=== PATIENT | female | born 1970 | race Caucasian/White ===

== ENCOUNTER 2021-07-27 08:11 | Inpatient (IN) ==
[2021-07-27] MEDS ORDERED: SODIUM CHLORIDE 0.9% 1,000 ML IV STA (08:30)
[2021-07-27 08:54] LABS: Basophils # 0.1 10*3/uL (0.0-0.2); Basophils % 0.3 % (0.0-0.8); Eosinophils # 0.1 10*3/uL (0.0-0.87); Eosinophils % 0.6 % (0.00-10.9); Hematocrit 47.5 VOL% (35.7-47.0); Hemoglobin 14.6 GM/DL (12.0-16.0); Immature Granulocytes % 1.2 %; Immature Granulocytes Absolute 0.23 #; Lymphocytes # 2.5 10*3/uL (1.4-4.0); Lymphocytes % 13.3 % (21.3-54.2); Mean Corpuscular HGB Conc 30.7 GM/DL (32-36); Mean Corpuscular Volume 76.1 FL (87-102); Mean Platelet Volume 9.8 FL (9.6-12.0); Monocytes % 6.8 % (1.7-12.7); Neutrophils % 77.8 % (38.7-73.9); Platelet Count 545 T/CUMM (130-400); Red Blood Count 6.24 MC/CUMM (3.8-5.5); Red Cell Distribution Width 16.2 % (9.3-17.3); White Blood Count 18.6 T/CUMM (4-12)
[2021-07-27] MEDS ORDERED: HYDROmorphone 2 MG/1 ML VIAL IV STA (09:06)
[2021-07-27] MEDS ORDERED: ONDANSETRON 4 MG/2 ML VIAL IV ONE (09:06)
[2021-07-27] MEDS ORDERED: methylPREDNISolone SOD SUC 40 MG/1 ML VIAL IV STA (09:15)
[2021-07-27 09:17] LABS: Alanine Aminotransferase 38 U/L (13-56); Albumin 3.3 G/DL (3.4-5.0); Alkaline Phosphatase 132 U/L (45-117); Aspartate Amino Transferase 24 U/L (0-37); Blood Urea Nitrogen 17 MG/DL (7-18); Calcium 9.5 MG/DL (8.5-10.1); Carbon Dioxide 20 MMOL/L (21-32); Estimated Glom Filtration Rate 63 ML/MIN; Glucose 178 MG/DL (74-106); Osmolality,Calculated 278.8 MOS/KG (273-304); Potassium 3.7 MMOL/L (3.5-5.1); Sodium 137 MMOL/L (136-145); Total Protein 7.7 G/DL (6.4-8.2)
[2021-07-27] MEDS ORDERED: LACTATED RINGERS 1,000 ML IV ONE (09:26)
[2021-07-27] MEDS ORDERED: GLUCAGON 1 MG VIAL IM PRN (11:20)
[2021-07-27] MEDS ORDERED: DEXTROSE 10% 250 ML BAG IV PRN (11:20)
[2021-07-27] MEDS: SODIUM CHLORIDE 0.9% 1,000 ML IV SCH ×2 (12:07→21:10)
[2021-07-27] MEDS: PIPERACILLIN/TAZOBACTAM 3,375 MG in SODIUM CHLORIDE 0.9% 100 ML IV SCH ×2 (12:07→21:10)
[2021-07-27] MEDS: MORPHINE 2 MG/1 ML SYRINGE IV PRN ×2 (12:26→17:46)
[2021-07-27 14:48] LABS: Bilirubin,Urine Negative (Negative); Blood, Urine Negative (Negative); Glucose,Urine (UA) Negative (Negative); Ketones,Urine Negative (Negative); Mucus,Urine Occasional /LPF (Occasional); Nitrite,Urine Negative (Negative); Protein,Urine Negative; RBC,Urine 1 /HPF (0-4); Squamous Epithelial Cell,Urine Occasional /HPF (0-10); Urine Appearance CLEAR (Clear); Urine Color Yellow (Yellow); Urine Specific Gravity 1.047 (1.001-1.035); Urine Urobilinogen < 2.0 EU/DL (<2.0)
[2021-07-27] MEDS ORDERED: INFLUENZA VIRUS VACCINE 0.5 ML SYRINGE IM ONE (15:32)
[2021-07-27] MEDS: ENOXAPARIN 40 MG/0.4 ML SYRINGE SUBCUT SCH (21:12)
[2021-07-28] MEDS ORDERED: MORPHINE 4 MG/1 ML VIAL IV PRN (02:41)
[2021-07-28] MEDS: ONDANSETRON 4 MG/2 ML VIAL IV PRN ×2 (02:42→12:29)
[2021-07-28] MEDS: MORPHINE 2 MG/1 ML SYRINGE IV PRN (02:44)
[2021-07-28] MEDS: PIPERACILLIN/TAZOBACTAM 3,375 MG in SODIUM CHLORIDE 0.9% 100 ML IV SCH ×3 (04:38→20:42)
[2021-07-28 06:59] LABS: Albumin 2.7 G/DL (3.4-5.0); Bilirubin,Total 0.9 MG/DL (0.20-1.00); Calcium 8.8 MG/DL (8.5-10.1); Osmolality,Calculated 283.1 MOS/KG (273-304); Potassium 3.8 MMOL/L (3.5-5.1); Thyroid Stimulating Hormone 0.036 uIU/ml (0.358-3.74); Total Protein 6.8 G/DL (6.4-8.2)
[2021-07-28] MEDS ORDERED: LEVOTHYROXINE 100 MCG VIAL IV SCH (07:00)
[2021-07-28] MEDS: PANTOPRAZOLE 40 MG VIAL IV SCH (09:20)
[2021-07-28 10:20] LABS: Basophils % 0.1 % (0.2-1.0); Eosinophils # 0.1 # (0.0-0.70); Eosinophils % 0.7 % (0.0-10.0); Hematocrit 38.4 VOL% (37.0-47.0); Hemoglobin 11.6 GM/DL (12.0-16.0); Lymphocytes # 2.7 # (1.3-2.9); Lymphocytes % 16.8 % (20.5-45.5); Mean Corpuscular HGB Conc 30.2 GM/DL (32-36); Mean Corpuscular Volume 77.9 FL (81-99); Mean Platelet Volume 10.4 FL (7.4-10.4); Monocytes % 8.5 % (5.5-11.7); Neutrophils % 73.7 % (43.0-65.0); Platelet Count 383 T/CUMM (130-400); Red Blood Count 4.93 MC/CUMM (4.20-5.40); Red Cell Distribution Width 15.4 % (11.5-15.5); White Blood Count 16.1 T/CUMM (4.8-10.8)
[2021-07-28] MEDS: methylPREDNISolone SOD SUC 40 MG/1 ML VIAL IV SCH (11:11)
[2021-07-28] MEDS: SODIUM CHLORIDE 0.9% 1,000 ML IV SCH ×2 (12:13→21:32)
[2021-07-28] MEDS: ENOXAPARIN 40 MG/0.4 ML SYRINGE SUBCUT SCH (20:39)
[2021-07-29] MEDS ORDERED: ACETAMINOPHEN 325 MG TABLET PO PRN (00:53)
[2021-07-29] MEDS: SODIUM CHLORIDE 0.9% 1,000 ML IV SCH (04:20)
[2021-07-29] MEDS: PIPERACILLIN/TAZOBACTAM 3,375 MG in SODIUM CHLORIDE 0.9% 100 ML IV SCH ×3 (04:20→20:58)
[2021-07-29] MEDS: LEVOTHYROXINE 100 MCG VIAL IV SCH (06:19)
[2021-07-29 06:49] LABS: Calcium 8.3 MG/DL (8.5-10.1); Osmolality,Calculated 281.3 MOS/KG (273-304); Potassium 3.9 MMOL/L (3.5-5.1)
[2021-07-29 07:13] LABS: Basophils % 0.1 % (0.0-0.8); Eosinophils % 0.1 % (0.00-10.9); Hemoglobin 9.6 GM/DL (12.0-16.0); Immature Granulocytes % 0.6 %; Immature Granulocytes Absolute 0.09 #; Lymphocytes # 2.3 10*3/uL (1.4-4.0); Lymphocytes % 16.4 % (21.3-54.2); Mean Corpuscular Volume 80.3 FL (87-102); Mean Platelet Volume 10.7 FL (9.6-12.0); Monocytes % 5.4 % (1.7-12.7); Neutrophils % 77.4 % (38.7-73.9); Platelet Count 312 T/CUMM (130-400); Red Blood Count 4.12 MC/CUMM (3.8-5.5); Red Cell Distribution Width 15.1 % (9.3-17.3); White Blood Count 13.9 T/CUMM (4-12)
[2021-07-29 07:18] LABS: Hematocrit 33.1 VOL% (35.7-47.0)
[2021-07-29 09:01] LABS: Folate 15.6 NG/ML (5.38-24.0)
[2021-07-29 09:02] LABS: % Iron Saturation 8.7 % (18-50); Ferritin 39.8 ng/mL (8-252)
[2021-07-29] MEDS: PANTOPRAZOLE 40 MG VIAL IV SCH (09:05)
[2021-07-29] MEDS: methylPREDNISolone SOD SUC 40 MG/1 ML VIAL IV SCH (09:06)
[2021-07-29] MEDS: FERROUS GLUCONATE 324 MG TABLET PO SCH (20:58)
[2021-07-29] MEDS: ENOXAPARIN 40 MG/0.4 ML SYRINGE SUBCUT SCH (20:59)
[2021-07-30] MEDS: PIPERACILLIN/TAZOBACTAM 3,375 MG in SODIUM CHLORIDE 0.9% 100 ML IV SCH ×2 (04:10→13:37)
[2021-07-30 05:56] LABS: Basophils # 0.1 10*3/uL (0.0-0.2); Basophils % 0.4 % (0.0-0.8); Eosinophils # 0.1 10*3/uL (0.0-0.87); Eosinophils % 0.6 % (0.00-10.9); Hematocrit 31.9 VOL% (35.7-47.0); Hemoglobin 9.3 GM/DL (12.0-16.0); Immature Granulocytes % 0.6 %; Immature Granulocytes Absolute 0.07 #; Lymphocytes # 3.7 10*3/uL (1.4-4.0); Lymphocytes % 29.6 % (21.3-54.2); Mean Corpuscular HGB Conc 29.2 GM/DL (32-36); Mean Corpuscular Volume 79.2 FL (87-102); Mean Platelet Volume 10.1 FL (9.6-12.0); Monocytes % 6.8 % (1.7-12.7); Platelet Count 293 T/CUMM (130-400); Red Blood Count 4.03 MC/CUMM (3.8-5.5); Red Cell Distribution Width 14.9 % (9.3-17.3); White Blood Count 12.4 T/CUMM (4-12)
[2021-07-30 06:07] LABS: Alanine Aminotransferase 30 U/L (13-56); Albumin 2.5 G/DL (3.4-5.0); Alkaline Phosphatase 75 U/L (45-117); Aspartate Amino Transferase 17 U/L (0-37); Bilirubin,Total < 0.39 MG/DL (0.20-1.00); Blood Urea Nitrogen 14 MG/DL (7-18); Calcium 8.8 MG/DL (8.5-10.1); Carbon Dioxide 25 MMOL/L (21-32); Estimated Glom Filtration Rate 108 ML/MIN; Glucose 93 MG/DL (74-106); Osmolality,Calculated 277.5 MOS/KG (273-304); Potassium 3.5 MMOL/L (3.5-5.1); Sodium 139 MMOL/L (136-145); Total Protein 5.9 G/DL (6.4-8.2)
[2021-07-30] MEDS: LEVOTHYROXINE 100 MCG VIAL IV SCH (06:25)
[2021-07-30] MEDS ORDERED: predniSONE 5 MG TABLET PO SCH (09:00)
[2021-07-30] MEDS: FERROUS GLUCONATE 324 MG TABLET PO SCH (09:16)
[2021-07-30] MEDS: PANTOPRAZOLE 40 MG VIAL IV SCH (09:17)
[2021-07-30] MEDS: SODIUM CHLORIDE 0.9% 1,000 ML IV SCH (11:07)
[2021-07-30 11:56] VITALS: BP 124/59
== END 2021-07-30 15:12 | disposition home or self-care (01) | DRG 388 ==
LOC: N.ED 08:11 → SUATTDRO 11:20 → N.EDINP 11:20 → N.3E 15:27
PROVIDERS: ADMIT Internal Medicine; ATTEND Internal Medicine